=== PATIENT | female | born 1945 | race Caucasian/White ===

== ENCOUNTER 2021-07-22 05:53 | Day surgery (SDC) | payer BC ==
[2021-07-19 10:11] VITALS: BMI 19.7
[2021-07-22] MEDS ORDERED: Lidocaine 1% MPF 2 ML VIAL ONE (06:50)
[2021-07-22] MEDS ORDERED: PROPOFOL 20 ML ONE ×3 (07:27→08:45)
[2021-07-22] MEDS ORDERED: PROPOFOL 0 ML ONE (07:27)
[2021-07-22] MEDS ORDERED: Lidocaine 2% MPF 10 ML AMP (For Epidural Use) ONE (07:27)
[2021-07-22] MEDS ORDERED: Glycopyrrolate 0.2 MG/ML 5 ML SYRINGE ONE (07:58)
[2021-07-22] MEDS ORDERED: PHENYLEPHRINE-NS 100 MCG/ML 10 ML SYRINGE ONE (08:17)
== END 2021-07-22 09:35 | disposition home or self-care (01) ==
LOC: CSHSDC 05:53
PROVIDERS: ATTEND Internal Medicine Gastroenterology
PROC: 0DJD8ZZ Inspection of Lower Intestinal Tract, Via Natural or Artificial Opening Endoscopic (ICD-10-PCS; principal; 2021-07-22)
DX: Z12.11 Encounter for screening for malignant neoplasm of colon (principal); Q43.8 Other specified congenital malformations of intestine; K64.9 Unspecified hemorrhoids; Z86.010 Personal history of colon polyps; E78.5 Hyperlipidemia, unspecified
CPT/HCPCS: J2704

== ENCOUNTER 2021-09-23 13:27 | Outpatient (CLI) | payer BC | END 2021-09-23 13:28 | disposition home or self-care (01) | LOC: CSHMAMMO 13:27 | PROVIDERS: ATTEND Internal Medicine | DX: M81.0 Age-related osteoporosis without current pathological fracture (principal); M85.89 Other specified disorders of bone density and structure, multiple sites | CPT/HCPCS: 77080 ==